=== PATIENT | male | born 1995 | race Caucasian/White ===

== ENCOUNTER 2017-05-04 09:26 | Emergency (ER) | payer OTHER ==
[~2017-05-04] VITALS: Ht 175.3 cm; Wt 74.0 kg
[2017-05-04 09:34] VITALS: TEMP 36.8; Ht 175.3 cm; Wt 74.0 kg
--- NOTE | 2017-05-04 09:43 | EMERGENCY ROOM VISIT NOTE ---
History Report prepared by Gio: Beth Lind Under the Supervision of: Dr. Xavi Salcedo M.D. First contact with patient: 09:33 Stated Complaint: ALLERGIC REACTION History of Present Illness The patient is a 21 year old male who presents to the Emergency Room with complaints of a resolved allergic reaction that occurred prior to arrival. The patient states that last winter he began getting allergy shots for trees, pollen , cats, and dogs. He states that he has never had a reaction to the shots in the past. The patient states that today he had his shots with an increased dose. He states that he began feeling itchy, and notes that his skin turned red and swollen. The patient states that he was feeling tachycardic. He denies any breathing difficulties, tongue swelling, or chest pain. Per nursing staff, the patient was given .3 Epinephrine, 125 Solu-Medrol, 50 mg Benadryl, and an Albuterol nebulizer to alleviate his symptoms. Source of History: patient, nursing staff Onset: prior to arrival Position: other (global) Quality: other (allergic reaction) Timing: resolved Associated Symptoms: No chest pain, No SOB Note: Associated Symptoms: felt itchy, red, swollen, tachycardic Review of Systems All systems have been listed, reviewed, and are negative other than those previously mentioned. Please see Additional Medical History Sheet. Past Medical & Surgical Medical Problems: (1) Asthma Surgical Problems: (1) [place] teeth extracted Family History Heart disease Social History Smoking Status: Never Smoker Smokeless Tobacco Use: No Alcohol Use: occasionally Marital Status: single Housing Status: lives with roommate Occupation Status: [employer] student Current/Historical Medications Scheduled Epinephrine (Epipen), 0.3 MG IM UD Levocetirizine Dihydrochloride (Levocetirizine Dihydrochl), 1 TAB PO QPM Allergies Coded Allergies: Cat Dander (Unverified Allergy, Unknown, UNKOWN , 05/04/17) Dog Dander (Unverified Allergy, Unknown, UNKOWN , 05/04/17) NUTS (Unverified Allergy, Unknown, UNKOWN , 05/04/17) Shellfish Allergy (Unverified Allergy, Unknown, UNKOWN , 05/04/17) Uncoded Allergies: SEASONAL (Allergy, Unknown, UNKOWN , 05/04/17) Physical Exam Vital Signs Date Time Temp Pulse Resp B/P (MAP) Pulse Ox O2 Delivery O2 Flow Rate FiO2 05/04/17 11:15 75 16 122/68 99 05/04/17 10:30 74 16 124/65 98 Room Air 05/04/17 09:40 89 05/04/17 09:34 36.8 84 16 141/79 98 Room Air 05/04/17 09:34 97 Physical Exam GENERAL: Patient awake, alert, oriented x 3. Patient follows commands. Patient does not appear toxic. Patient is adequately hydrated and well- nourished. SKIN: Faint red blanching rash at base of neck. No pallor, cyanosis HEENT: Normal head, pupils equal, reactive to light and accommodation. Oral cavity and posterior pharynx appear normal. Neck: Without adenopathy, no neck vein distention. LUNGS: Clear to auscultation. No wheezes, no rales, no rhonchi. HEART: 2/6 systolic murmur. No gallops. No rubs ABDOMEN: Soft, nontender. EXTREMITIES: No signs of trauma or infection. NEUROLOGIC: Cranial nerves II-XII within normal limits. No gross motor sensory function deficits. Medical Decision & Procedures ED Course 0936: Past medical records reviewed. The patient was evaluated in room B3B. A complete history and physical examination was performed. 1100: I reevaluated the patient and he is doing well. On reexamination his lungs are clear with no wheezes, rhonchi, or rales. His skin is clear, and he has not tongue swelling. I discussed the treatment plan with him and he verbalized complete understanding and agreement. The patient is ready for discharge. Medical Decision Nurses notes reviewed. Medical history sheet reviewed. Differential diagnosis includes but is not limited to: Allergic reaction, anaphylaxis. The patient apparently had an allergic reaction following allergy shots this morning at [facility]. The patient had been given Benadryl, Solu-Medrol, epinephrine and albuterol treatment. On arrival the patient still had a faint rash around his neck. The patient was reevaluated prior to his discharge and was wheeze free without any rash. The patient was encouraged to take additional Benadryl if symptoms recurred or return to the ED. The patient is to consult with [facility] prior to any further allergy shots. Medication Reconcilliation Current Medication List: was personally reviewed by me Blood Pressure Screening Patient's blood pressure: Normal blood pressure Impression Primary Impression: Allergic reaction Scribe Attestation The scribe's documentation has been prepared under my direction and personally reviewed by me in its entirety. I confirm that the note above accurately reflects all work, treatment, procedures, and medical decision making performed by me. Departure Information Dispostion Home / Self-Care Referrals [facility] Forms HOME CARE DOCUMENTATION FORM, IMPORTANT VISIT INFORMATION Patient Instructions My [facility] Additional Instructions Consult with S prior to any further allergy testing. 50 mg of Benadryl every 4-6 hours as needed for more allergic symptoms.
[2017-05-04] MEDS ORDERED: LEVO-14 PO (09:55)
[2017-05-04] MEDS ORDERED: EPP3/2 IM (09:55)
[2017-05-04 11:15] VITALS: BP 122/68; PULSE 75; O2SAT 99
== END 2017-05-04 11:15 | disposition home or self-care (01) ==
LOC: EDBD 09:26 → C.EDB 09:29
DX: T80.62XA Other serum reaction due to vaccination, initial encounter (principal); X58.XXXA Exposure to other specified factors, initial encounter